=== PATIENT | female | born 1970 | race Caucasian/White ===

== ENCOUNTER → 2021-04-01 | Day surgery (SDC) | payer OTHER ==
[~2021-04-01] MED LIST: BUPIVACAINE HCL 0.5% INJ 30 ML VIAL INJ ONE; CEFAZOLIN SOD 1 GM/NS 50ML 50 ML IV ONE; DEXAMETHASONE SOD PHOS INJ 4 MG/ML VIAL ONE; FENTANYL CITRATE/PF 100MCG/2 ML INJ ONE; KETOROLAC TROMETHAMINE 30 MG/ML VIAL ONE; LIDOCAINE HCL 2% LOCAL INJ 5 ML SDV VIAL INJ ONE; MIDAZOLAM HCL 2 MG/2 ML VIAL ONE; ONDANSETRON HCL INJ 2MG/ML 2ML 2 MG/ML VIAL ONE; POVIDONE IODINE 0.05% 0.05 % ML PO ONE; PROPOFOL IV EMULSION 10 MG/ML 20 ML VIAL ONE; PROTONIX20 MG PO; SEVOFLURANE INHAL SOLN 250 ML PEN BTL ONE
[2021-04-01 08:15] VITALS: BP 113/69
== END | disposition home or self-care (01) ==
LOC: OR 05:30
PROVIDERS: ATTEND Specialist
DX: M67.441 Ganglion, right hand (principal); G56.01 Carpal tunnel syndrome, right upper limb; F17.210 Nicotine dependence, cigarettes, uncomplicated; Z88.6 Allergy status to analgesic agent; Z01.812 Encounter for preprocedural laboratory examination; Z20.822 Contact with and (suspected) exposure to COVID-19; Z68.30 Body mass index [BMI] 30.0-30.9, adult; Z86.16 Personal history of COVID-19
CPT/HCPCS: 26160; 29848; 81025; 88304; J0690; J1100; J1885; J2001; J2250; J2405; J2704; J3010; U0002